=== PATIENT | male | born 1950 | race Caucasian/White ===

== ENCOUNTER 2016-10-16 08:58 | Observation (INO) | payer MEDICARE ==
[~2016-10-16] VITALS: Ht 177.8 cm; Wt 75.1 kg
[~2016-10-16 08:58] MED LIST: ASPI1TAB69 PO; BACL10TA PO; GELFOAM SIZE 100 ONE; GENTAMICIN SULFATE 80 MG/2 ML VIAL ONE; LEVO50TA4 PO; MICROFIBRILLAR COLLAGEN HEMOSTAT 70 X 35 MM BANDAGE ONE; NAPR5CAP; SODIUM CHLOR 0.9% 250 ML INJ 250 ML ONE; THROMBIN (TOPICAL) 5,000 UNIT VIAL ONE; VANCOMYCIN HCL 1000 MG VIAL ONE; ceFAZolin 2 GM PREMIX 50 ML ONE
[2016-10-16] MEDS ORDERED: METOPROLOL TARTRATE 25 MG TAB PO PRN (10:00)
[2016-10-16] MEDS ORDERED: SODIUM CHLORID 0.9% 500 ML IV SCH (10:00)
[2016-10-16] MEDS ORDERED: INSULIN HUMAN REGULAR 1,000 UNITS/10 ML VIAL SQ PRN (10:00)
[2016-10-16] MEDS: LACTATED RINGER'S 1000 ML IV SCH (10:00)
[2016-10-16 10:30] VITALS: BP 159/77; PULSE 64; RESP 16; TEMP 97.7; O2SAT 100
[2016-10-16] MEDS ORDERED: MIDAZOLAM HCL 2 MG/2 ML VIAL ONE (14:03)
[2016-10-16] MEDS ORDERED: ACETAMINOPHEN 1000 MG/100 ML VIAL IV ONE (14:03)
[2016-10-16] MEDS ORDERED: fentaNYL CITRATE 250 MCG/5 ML AMP ONE (14:03)
[2016-10-16] MEDS ORDERED: ARTIFICIAL TEARS OPTH OINT 3.5 APPLIC/3.5 GM TUBO ONE (14:03)
[2016-10-16] MEDS ORDERED: ACETAMINOPHEN/HYDROcodone 325 MG/10 MG TAB PO PRN ×2 (17:30)
[2016-10-16] MEDS ORDERED: SODIUM CHLORIDE 0.9% FLUSH 5 ML FLUSH IVF PRN (17:30)
[2016-10-16] MEDS ORDERED: MORPHINE SULFATE 4 MG/ML INJ IV PUSH PRN ×2 (17:30)
--- NOTE | 2016-10-16 17:36 | RADRPT ---
EXAM DATE/TIME: 10/16/2016 15:06 [facility] COMPARISON: No previous studies available for comparison. INDICATIONS : Cervical fusion and artificial disk. C5-6 MEDICAL HISTORY : Unobtainable. SURGICAL HISTORY : Unobtainable. ENCOUNTER: Initial ACUITY: 1 day PAIN SCORE: Non-responsive. LOCATION: C-spine. FINDINGS: Matrix views reveal normal alignment with placement of an intervertebral disc jean t or disc apparatus at C5-6 which appears appropriately positioned. CONCLUSION: Postsurgical changes C5-C6 Robert Duran MD on October 16, 2016 at 17:34 Board Certified Radiologist. This report was verified electronically.
[2016-10-16] MEDS ORDERED: MORPHINE SULFATE 4 MG/ML INJ ONE (17:39)
[2016-10-16] MEDS ORDERED: ACETAMINOPHEN 325 MG TAB PO PRN (18:00)
[2016-10-16] MEDS ORDERED: BISACODYL 10 MG SUPP PR PRN (18:00)
[2016-10-16] MEDS ORDERED: DEXAMETHASONE SOD PHOS 4 MG/ML VIAL IV SCH (18:00)
[2016-10-16] MEDS ORDERED: MENTHOL LOZENGE SUCK-ON PRN (18:00)
[2016-10-16] MEDS ORDERED: BACLOFEN 10 MG TAB PO PRN (18:00)
[2016-10-16] MEDS: NS + KCL 20 MEQ INJ 1,000 ML IV SCH (18:00)
[2016-10-16] MEDS ORDERED: DO NOT ADM ANY ANTICOAGULANT DRUGS XX PRN (18:00)
[2016-10-16] MEDS ORDERED: ONDANSETRON HCL 4 MG/2 ML VIAL IV PRN (18:00)
[2016-10-16] MEDS ORDERED: ceFAZolin 2 GM PREMIX 50 ML IV SCH (18:00)
[2016-10-16 19:14] VITALS: BP 148/75; PULSE 75; RESP 15; TEMP 98.6; O2SAT 95
[2016-10-16] MEDS: DOCUSATE SODIUM 100 MG CAP PO SCH (21:24)
[2016-10-16] MEDS: DEXAMETHASONE SOD PHOS 4 MG/ML VIAL IV SCH (21:25)
[2016-10-16] MEDS: SODIUM CHLORIDE 0.9% FLUSH 5 ML FLUSH IVF SCH (21:25)
[2016-10-16] MEDS ORDERED: CYCLOBENZAPRINE HCL 10 MG TAB PO PRN (22:00)
[2016-10-16] MEDS: ceFAZolin 2 GM PREMIX 50 ML IV SCH (23:26)
[2016-10-17] VITALS: BP 146/82; PULSE 99; RESP 16; TEMP 97.9; O2SAT 94
[2016-10-17] MEDS: DEXAMETHASONE SOD PHOS 4 MG/ML VIAL IV SCH ×3 (02:40→06:59)
[2016-10-17] MEDS: NS + KCL 20 MEQ INJ 1,000 ML IV SCH ×2 (03:22→06:47)
[2016-10-17 04:00] VITALS: BP 114/68; PULSE 73; RESP 16; TEMP 96.7; O2SAT 95
[2016-10-17] MEDS ORDERED: LEVOTHYROXINE SODIUM 50 MCG TAB PO SCH (06:00)
[2016-10-17] MEDS: ceFAZolin 2 GM PREMIX 50 ML IV SCH (06:11)
[2016-10-17] MEDS: LACTATED RINGER'S 1000 ML IV SCH (06:59)
[2016-10-17] MEDS: DOCUSATE SODIUM 100 MG CAP PO SCH (07:23)
[2016-10-17] MEDS: SODIUM CHLORIDE 0.9% FLUSH 5 ML FLUSH IVF SCH (07:23)
[2016-10-17 08:02] VITALS: BP 130/68; PULSE 70; RESP 18; TEMP 96.7; O2SAT 97
[2016-10-17] MEDS ORDERED: PANTOPRAZOLE SOD 40 MG DELAYED RELEASE TAB PO SCH (09:00)
[2016-10-17] MEDS ORDERED: HYDR-3533 PO (09:28)
--- NOTE | 2016-10-17 10:15 | HHI.DCPOC ---
Discharge Care Plan Diagnosis: (1) Status post cervical arthrodesis Goals to Promote Your Health * To prevent worsening of your condition and complications * To maintain your health at the optimal level Directions to Meet Your Goals Take your medications as prescribed Follow your dietary instruction Follow activity as directed Keep your appointments as scheduled Take your immunizations and boosters as scheduled If your symptoms worsen call your PCP, if no PCP go to Urgent Care Center or Emergency Room Smoking is Dangerous to Your Health. Avoid second hand smoke Call the 24-hour hour crisis hotline for domestic abuse at [facility] Oct 17, 2016 10:15
[2016-10-17] MEDS ORDERED: LACTATED RINGER'S 1000 ML INJ 2,000 ML IV ONE (12:00)
[2016-10-17] MEDS ORDERED: ONDANSETRON HCL 4 MG/2 ML VIAL IV PUSH ONE (12:00)
[2016-10-17] MEDS ORDERED: PROPOFOL 200 MG/20 ML AMP IV ONE (12:00)
[2016-10-17] MEDS ORDERED: NEOSTIGMINE 3 MG/3 ML SYR IV ONE (12:00)
--- NOTE | 2016-10-18 17:01 | PD.OP ---
Operative Report Date of Surgery: Oct 16, 2016 Preoperative Diagnosis: C5 6 disc herniation Postoperative Diagnosis: C5 6 disc herniation Procedure: C5-6 anterior cervical discectomy and arthroplasty using Mobi C Anesthesia: general Surgeon: Mark Cardoza Food Vendor(s): Flakita Ruvalcaba Operation and Findings: INDICATIONS FOR THE PROCEDURE Mr Lincoln is a 66 year-old male who presented with intractable neck pain and clinical evidence of C6 cervical radiculopathy. He was found to have a large disc herniation at C5-6, causing significant mass effect on the nerve root. He failed multiple modalities of nonsurgical treatment and his symptoms were affecting his quality of life. An anterior cervical discectomy and arthroplasty were indicated. The [id number] details of the surgical procedure, indications, alternatives, risks and potential complications were fully discussed with the patient. The patient fully understood. All her questions were answered. No guarantees were given. he voiced requesting the procedure and signed informed consents. She was offered the alternative of delaying the procedure and continuing with nonsurgical management. DETAILS OF THE SURGICAL PROCEDURE SURGICAL APPROACH A skin incision was made along the middle cervical crease with a #10 blade. The dissection was carried out through the platysma exposing the sternocleidomastoid muscle. The cervical spine was approached following the fascial layers of the neck, just medial to the anterior border of the sternocleidomastoid and carotid sheath by a combination of sharp and dull dissection. The omohyoid muscle was identified and carefully dissected laterally and the deep cervical fascia was carefully opened. The longus colli muscles were retracted to each side of the midline. A marker was placed at the C5-6 disc space and a cross-table lateral x-ray performed with a C-arm. An AP xray was then obtained as well, and the midline of the disk space was defined. SURGICAL DECOMPRESSION In order to decompress the anterior surface of the spinal cord it was necessary to perform a microsurgical resection of the disk. At this point in the procedure the operating microscope was draped in the usual sterile fashion and brought to the field. The rest of the surgical procedure was performed using microdissection technique with the exception of the closure. Under the operative microscopic a self-retaining retractor was placed underneath the longus colli muscle. The annulus at C5-6 was incised with a #15 blade and microdiscectomy was then carefully carried out using angled curets and pituitary forceps. The patient had a disk herniation in association with an osteophitic spurr, which was producing mass affect on the exiting nerve root. This was carefully dissected with a nerve hock and resected with a think foot plate 2 mm Kerrison under high magnification. The posterior longitudinal ligament was then elevated with an angled curet and incised with a 15 bladed knife. A careful resection of the posterior longitudinal ligament was carried out using a thin footplate 2 mm Kerrison. Extruded disk fragments causing mechanical compression were carefully dissected. The decompression was then carried out laterally, and a bilateral foraminotomy was performed with a 2 mm thin foot Kerrison. The epidural space was the systematically assessed with a nerve hook in search for disk fragments of scar tissue. An excellent decompression was achieved in both, the dural sac and bilateral exiting nerve roots. The incision was then irrigated with a large amount of antibiotic solution INTERBODY ARTHROPLASTY In order to avoid collapse of the disk space which would result in bilateral foraminal stenosis, and in order to maintain disk space height and function minimally development of adjacent level degeneration, it was necessary to place an interbody device. At this point of the procedure, gentle distraction was applied. The size of the interbody device was then assessed using a trial, and a cross table xray was done for confirmation of appropriate size and position of the device. Then the disk space was irrigated with antibiotic solution, and a 15mm by 6mm Mobi C artificial disk was carefully impacted into the disc space C5-6. An excellent position of the device was achieved. This was confirmed anatomically by feeling the space posterior to the implant and distance to the anterior surface of the dural sac. Radiological confirmation of the position was performed with a cross table AP and lateral X-ray views, performed with the C-arm. COMPLETION OF THE SURGICAL PROCEDURE Once that each interbody device was in an appropriate position, the distraction was discontinued. The position of the device as well as alignment of the spine were assessed anatomically by direct visualization, and radiologically by performing an AP and lateral X-ray of the cervical spine with the C-arm. The position of the implant was excellent. The incision was irrigated with several liters of antibiotic solution. Hemostasis was achieved with a bipolar. A 7 mm Sunny-Rock drain was left in the prevertebral space and externalized through a separate stab incision. The incision was then closed in layers. 3-0 Vicryl with interrupted sutures was used to close the platysma and subcutaneous tissue. The skin was closed with 4- 0 running subcuticular Vicryl and Dermabond was applied to the skin. The drain was secured with a 3-0 nylon. At the end of the procedure the sponge, needle and instrument counts were all correct. The estimated blood loss was less than 50-60 cc. No blood transfusion was given. No intraoperative complications occurred. The patient received prophylactic antibiotics. The patient was then extubated and transferred to the recovery room in stable condition. Mark Cardoza MD Oct 18, 2016 17:01
--- NOTE | 2016-10-19 13:16 | HHI.DS ---
Discharge Summary Admission Date Oct 16, 2016 at 17:39 Discharge Date: Oct 17, 2016 Admitting Diagnosis s/p cervical discectomy with arthroplasty (1) Status post cervical arthrodesis ICD Code: Z98.1 Brief History Mr Lincoln is a 66 year-old male who presented with intractable neck pain and clinical evidence of C6 cervical radiculopathy. He was found to have a large disc herniation at C5-6, causing significant mass effect on the nerve root. He failed multiple modalities of nonsurgical treatment and his symptoms were affecting his quality of life. An anterior cervical discectomy and arthroplasty were indicated. Imaging Last Impressions Cervical Spine X-Ray 10/16/16 0000 Signed Impressions: Service Date/Time: Sunday, October 16, 2016 15:06 - CONCLUSION: Postsurgical changes C5-C6 Robert Duran MD PE at Discharge Mr. Lincoln is alert, in no apparent distress. Speech is fluent. Mentation intact. Incision is clean and dry, with dressing in place. Cranial nerve examination: pupils to be equal, round and reactive to light. Facial motor are normal and symmetrical. Neck is immobilized by a Marshall J collar. Motor: moves major muscle groups of upper and lower extremities well Respiratory; clear, nonlabored Hospital Course Mr. Lincoln is a 66 year old male who underwent a C5-6 anterior cervical discectomy and arthroplasty using Mobi C for cervical HNP on Oct 16, 2016. His surgery went well without complications. He will be discharged home in stable conditions. Activity restrictions, wound care, and signs and symptoms to watch for were fully discussed with the patient. Pt Condition on Discharge: Stable Discharge Disposition: Discharge Home Discharge Instructions DIET: Follow Instructions for: Heart Healthy Diet, Soft Diet ADDITIONAL Diet Instructions: advance as tolerated ACTIVITIES You can perform: Weight Bearing As Asa ADDITIONAL Activity Instructio: Avoid strenuous activities, heavy lifting, overhead activities, repetitive bending, twisting, pushing, pulling or any activities which might result in stress over the spine. Avoid situtation that will put at risk for falls. Use assistive device as needed for walking. Wear cervical collar at all times, may remove only with meals. New Medications: Hydrocodone-Acetaminophen (Lortab) 5-325 Mg Tab 1-2 TAB PO Q12HR PRN PAIN #31 Ref 0 TAB Continued Medications: Aspirin (Aspirin) 81 Mg Tabdr 81 MG PO DAILY TAB Baclofen (Baclofen) 10 Mg Tab 10 MG PO TID PRN MUSCLE SPASM Ref 0 TAB Levothyroxine (Levothyroxine) 50 Mcg Tab 75 MCG PO DAILY Thyroid #30 Ref 0 TAB Naproxen Sodium (Naproxen Sodium) 220 Mg Cap 440 BID [facility] Oct 19, 2016 13:16
[2017-01-24] MEDS ORDERED: ASPI81TA81 (09:05)
[2017-01-24] MEDS ORDERED: LEVO75TA3 (09:05)
[2017-01-24] MEDS ORDERED: ACYC400T (09:05)
[2017-01-30] MEDS ORDERED: MEDI220T PO (09:39)
== END 2016-10-17 11:31 | disposition home or self-care (01) ==
LOC: HOR 08:58 → EDSTATUS 11:00 → HSDI 17:39 → N06B 18:25
PROVIDERS: ADMIT Neurological Surgery; ATTEND Neurological Surgery
DX: M50.122 Cervical disc disorder at C5-C6 level with radiculopathy (principal)
CPT/HCPCS: 00600; 22856; 72040; 76000; C1713; G0378; J0131; J0690; J1100; J1580; J2250; J2270; J2405; J2710; J3010; J3370; J3480; J7050; J7120; L0150; L0172

== ENCOUNTER → 2017-07-01 | Day surgery (SDC) | payer MEDICARE ==
[~2017-07-01] VITALS: Ht 177.8 cm; Wt 75.4 kg
[~2017-07-01] MED LIST changes: +ACETAMINOPHEN 325 MG TAB PO PRN; +ACETAMINOPHEN/HYDROcodone 325 MG/10 MG TAB PO PRN; +ACYC400T PO; +ACYCLOVIR 200 MG CAP PO SCH; -ASPI1TAB69 PO; +ASPI81TA81 PO; +BACLOFEN 10 MG TAB PO PRN; +BUPIVACAINE HCL PF 0.5% 30 ML VIAL ONE; +CHLORHEXIDINE GLUCONATE 2 % 1 PACK (2 CLOTHS) TOPICAL PRN; +DEXAMETHASONE SOD PHOS 4 MG/ML VIAL IV ONE; +DO NOT ADM ANY ANTICOAGULANT DRUGS PRN; +DOCUSATE SODIUM 100 MG CAP PO SCH; +GLYCOPYRROLATE 1 MG/5 ML SYRINGE IV PUSH ONE; +HYDR-3535 PO; +INSULIN HUMAN REGULAR 1,000 UNITS/10 ML VIAL SQ PRN; +LACTATED RINGER'S 1000 ML INJ 1,000 ML IV ONE; +LACTATED RINGER'S 1000 ML IV PRN; -LEVO50TA4 PO; +LEVO75TA3 PO; +LEVOTHYROXINE SODIUM 75 MCG TAB PO SCH; +LIDOCAINE HCL 1% PF 5 ML AMPULE OTHER ONE; +MEDI220T PO; +METOPROLOL TARTRATE 25 MG TAB PO PRN; -MICROFIBRILLAR COLLAGEN HEMOSTAT 70 X 35 MM BANDAGE ONE; +MIDAZOLAM HCL 2 MG/2 ML VIAL IV ONE; +MORPHINE SULFATE 4 MG/ML INJ IV PUSH PRN; -NAPR5CAP; +NEOSTIGMINE 3 MG/3 ML SYR IV ONE; +NON-FORMULARY DRUG (Naproxen Sodium 220 MG) PO PRN; +NS + KCL 20 MEQ INJ 1,000 ML IV SCH; +ONDANSETRON HCL 4 MG/2 ML VIAL IV PUSH ONE; +PANTOPRAZOLE SOD 40 MG DELAYED RELEASE TAB PO SCH; +PHENYLEPH/NS 1000 MCG/10 ML SYR IV ONE; +POVIDONE IODINE 5% (ANTISEPSIS KIT) 4 APPLICATIONS EACH NARE PRN; +PROPOFOL 200 MG/20 ML AMP IV ONE; +ROCURONIUM INJ 50 MG/5 ML SYRINGE IV PUSH ONE; -SODIUM CHLOR 0.9% 250 ML INJ 250 ML ONE; +SODIUM CHLORID 0.9% 500 ML IV PRN; +SODIUM CHLORIDE 0.9% 20 ML VIAL IV ONE; +SODIUM CHLORIDE 0.9% FLUSH 5 ML FLUSH IVF PRN; +SODIUM CHLORIDE 0.9% FLUSH 5 ML FLUSH IVF SCH; +VANCOMYCIN HCL 1000 MG ON-CALL/NS 250 ML IV SCH; +VECURONIUM BROMIDE 20 MG VIAL IV ONE; +ceFAZolin 2 GM PREMIX 50 ML IV SCH; +ceFAZolin INJ 1,000 MG VIAL IV ONE; +ePHEDrine/NS 25 MG/5 ML SYR IV ONE; +methylPREDNISolone ACETATE 40 MG/ML VIAL ONE
--- NOTE | 2017-07-01 11:51 | RADRPT ---
EXAM DATE/TIME: 07/01/2017 09:31 [facility] COMPARISON: No previous studies available for comparison. INDICATIONS : L3-L4, L4-L5 sarkis-laminectomy. Level localization. MEDICAL HISTORY : None. SURGICAL HISTORY : Cervical artifical disk. ENCOUNTER: Initial ACUITY: 1 day PAIN SCORE: Non-responsive. LOCATION: Lumbar spine. FINDINGS: A single lateral view of the lumbar spine was performed. There is a localization device placed poste riorly at the third from the bottom disc space.. CONCLUSION: Localization device posteriorly at the third from the bottom to space level. Chase Butler MD on July 01, 2017 at 11:49 Board Certified Radiologist. This report was verified electronically.
--- NOTE | 2017-07-01 11:52 | RADRPT ---
EXAM DATE/TIME: 07/01/2017 09:31 [facility] COMPARISON: No previous studies available for comparison. INDICATIONS : L3-L4, L4-L5 sarkis-laminectomy. Level localization. MEDICAL HISTORY : None. SURGICAL HISTORY : Cervical artifical disk. ENCOUNTER: Initial ACUITY: 1 day PAIN SCORE: Non-responsive. LOCATION: Lumbar spine. FINDINGS: A single lateral view of the lumbar spine was performed. Localization device placed posteriorly at t he second from the bottom lumbar vertebral body.. CONCLUSION: Second from the bottom lumbar vertebral body. Chase Butler MD on July 01, 2017 at 11:50 Board Certified Radiologist. This report was verified electronically.
--- NOTE | 2017-07-01 12:49 | PD.OP ---
Operative Report Date of Surgery: Jul 01, 2017 Preoperative Diagnosis: Lumbar spinal stenosis Postoperative Diagnosis: Lumbar spinal stenosis Procedure: L3-4 left laminectomy foraminotomy, mesiofacetectomy with microsurgical resection of the disk L4-5 left laminectomy foraminotomy, mesiofacetectomy with microsurgical resection of the disk Anesthesia: general Surgeon: Mark Cardoza Car Sales Associate(s): Flakita Ruvalcaba Operation and Findings: INDICATIONS FOR THE SURGICAL PROCEDURE Mr Lincoln is a 66 year-old male who presented with intractable back pain and ute evidence of left L3 and right [id number] extremity radiculopathy. He was found to have focal spinal stenosis at L3-4 and L4-5. he failed maximum nonsurgical management including multiple modalities of conservative treatment as well as pain management interventions by an interventional pain specialist. A surgical decompression was indicated as a last resort. The csbs-di-gdob details of the procedure, indications, alternatives, risks and potential complications were fully discussed with the patient. The patient fully understood. All the questions were answered. No guarantees were given. The patient voiced requesting the procedure and provided informed consents. The patient was offered the alternative of delaying the procedure and continuing with nonsurgical management. DETAILS OF THE SURGICAL PROCEDURE After the induction of general anesthesia, endotracheal intubation was performed. A [place] catheter, bilateral BASSAM hose and sequential compression devices were placed and kept throughout the procedure. The patient was positioned prone on a Sunny table over a Terry frame. All pressure points were carefully padded with eggcrate mattress. The eyes were tapped shut after ointment was applied by the anesthesiologist to prevent corneal abrasion. A Chuckie hugger was placed over the expossed lower body to maintain control of the core body temperature. The lower lumbar region was prepped and draped in the usual sterile fashion. A spinal needle was placed on the paraspinal muscle and a cross-table lateral x-ray performed with a C-arm. The skin incision was made over the spinous process of L3 and L5 along the midline. Small subcutaneous bleeders were controlled with a bipolar. The subcutaneous tissue and thoracolumbar fascia was opened with the Bovie and the spinous process of L3, L4 and L5 were exposed. Then, using a Perez elevator and a Bovie a subperiosteal dissection was performed over the spinous process lamina and facet at L3-4 on the left side, and L4 and L5 on the right side. A microdiscectomy self-retaining retractor was placed and an instrument was placed underneath the lamina of L4, and another cross-table lateral x-ray performed for radiological confirmation of the level. At this point in the procedure the operating microscope was draped in the usual sterile fashion and brought to the field. The rest of the surgical procedure was performed using microsurgical dissection technique with exception of the closure. Once the level was confirmed, a TPS drill brought to the field and a hemilaminectomy was performed at L3-L4 on the left side, and L4-L5 on the right side in standard fashion using the AM-8 drill bit, exposing the ligamentum flavum. The superior free border of the ligamentum flavum was from the dura with a ligament dissector and the ligamentum flavum was carefully removed with a 3 mm thin footplate Kerrison. The ligament Flavum and facets were significantly hypertrophic resulting on mass effect on the dural sac. Then, the medial aspect of the facet was drilled and undermined and the exiting left L4, and right L5 nerve root were identified and followed towards the foramen. A foraminotomy was performed with a 3 mm Kerrison at both levels. Then, the TPS drill was used to undermine the base of the spinous process, in order to carry out the decompression across the midline to the contralateral side. The ligamentum flavum across the midline was dissected from the dura with a ligament dissector and carefully removed with a 3 mm thin footplate Kerrison. An appropriate decompression of the dural sac and nerve root was achieved. Epidural veins located laterally to the dural sac were carefully coagulated with a bipolar and incised with microscissors. Gentle medial retraction of the dural sac allowed inspection of the disc space. The patient had a broad-based disc protusion which combined with the hypertrophic facets and ligamentun flavum was producing significant stenosis with mass effect on the dural sac and nerve root. Microdiscectomy was then deemed necessary at L3-4 and at L4-5. The annulus fibrosus was thoroughly coagulated with the bipolar and incised with a #10 blade. Then, a microdiscectomy was carried out in the standard fashion using straight and up- biting pituitary forceps. A reverse angle curet was used to push the herniated disc fragments into the disc space so they could be removed with pituitary forceps. Special attention was placed on the middle nerve root and axilla of the nerve root where disc fragments were found, which were carefully dissected and pushed into the disc space and removed with the Kerrison. An excellent decompression was achieved at L3-4, and at L4-5. The disc spaces were then irrigated with antibiotic solution. The incision was then thoroughly irrigated with antibiotic solution and hemostasis secured with the bipolar. A Valsalva maneuver failed to show any cerebrospinal fluid leak or bleeding. The incision was irrigated and closed in layers. 0 Vicryl with interrupted sutures was used to close the thoracolumbar fascia and superficial fascia. The subcutaneous tissue was closed with 3-0 Vicryl. The skin was closed with 4-0 running subcuticular Vicryl. Dermabond was applied to the skin. At the end of the procedure, the sponge, needle and instrument counts were all correct. Estimated blood loss was less than 80-100 cc. No blood transfusion was given. No intraoperative complications occurred. The patient received prophylactic antibiotics. The patient was then extubated and transferred to the recovery room in stable condition. Mark Cardoza MD Jul 01, 2017 12:49
[2017-07-01 15:48] VITALS: BP 120/71; PULSE 82; RESP 16; TEMP 98.1; O2SAT 95
== END | disposition home or self-care (01) ==
LOC: HSDC 06:41 → UNDOADMOB 11:53 → HSDI 11:53
PROVIDERS: ATTEND Neurological Surgery
DX: M48.061 Spinal stenosis, lumbar region without neurogenic claudication (principal); M47.816 Spondylosis without myelopathy or radiculopathy, lumbar region
CPT/HCPCS: 00630; 63047; 63048; 72020; 76000; J0690; J1030; J1100; J1580; J2250; J2370; J2405; J2710; J3010; J3370; J3480; J7120; L0627

== ENCOUNTER 2018-03-10 06:44 | Inpatient (IN) ==
[2018-03-10] MEDS ORDERED: Propofol Inj 500 MG/50 ML Vial ONE (07:13)
[2018-03-10] MEDS ORDERED: Metoprolol Tartrate 25 MG Tablet PO SCH ×2 (07:15→07:30)
[2018-03-10] MEDS ORDERED: Chlorhexidine Gluconate 2% 1 Pack (2 Cloths) TOPICAL SCH ×2 (07:15→07:30)
[2018-03-10] MEDS ORDERED: Thrombin Topical Soln 5,000 UNIT Vial TOPICAL ONE (07:25)
[2018-03-10] MEDS ORDERED: Bupivacaine/Epinephrine PF Inj 0.5% 10 ML Vial ONE (07:25)
[2018-03-10] MEDS ORDERED: ceFAZolin 2 GM Premix Inj 2 GM/50 ML PIGGYBACK IV.SIG ONE ×2 (07:25→12:54)
[2018-03-10] MEDS ORDERED: Ketamine Inj 50 MG/5 ML Syringe IV.PUSH ONE (07:34)
[2018-03-10] MEDS ORDERED: Sodium Chlor 0.9% Inj 500 ML IV.SIG SCH ×2 (08:00)
[2018-03-10] MEDS ORDERED: Vancomycin Inj 1 GM/200 ML PIGGYBACK IV.SIG SCH (08:00)
[2018-03-10 08:08] LABS: Bilirubin,Urine Negative (Negative); Clarity,Urine Clear (Clear); Color,Urine Yellow (Yellw/Straw); Glucose,Urine (UA) Negative (Negative); Hyaline Casts,Urine 1 /lpf (0-3); Leukocyte Esterase,Urine Negative (Negative); Nitrite,Urine Negative (Negative); Specific Gravity,Urine 1.023 (1.002-1.035)
[2018-03-10] MEDS ORDERED: Bisacodyl 10 MG Supp RECTAL PRN (09:57)
[2018-03-10] MEDS ORDERED: Zolpidem Tartrate 5 MG Tablet PO PRN (09:57)
[2018-03-10] MEDS ORDERED: Naloxone Inj 0.4 MG/ML Vial IV.PUSH PRN ×3 (10:00→17:28)
[2018-03-10] MEDS ORDERED: Heparin - SQ 10,000 UNITS/ML Vial SQ ONE (10:17)
[2018-03-10] MEDS ORDERED: Glycopyrrolate Inj 1 MG/5 ML Syringe IV.PUSH ONE (12:00)
[2018-03-10] MEDS ORDERED: Sodium Chlor 0.9% Inj 500 ML IV.SIG ONE (12:00)
[2018-03-10] MEDS ORDERED: Lidocaine PF 1% Inj 5 ML Syringe INFILTRATN ONE (12:00)
[2018-03-10] MEDS ORDERED: Phenylephrine/NS 1000 MCG/10ML Syringe IV.PUSH ONE (12:00)
[2018-03-10 14:11] LABS: ABG Base Excess -3.7 mmol/L (-2-2); ABG PCO2 34 mmHg (38-42); ABG PO2 304 mmHG (61-120)
--- NOTE | 2018-03-10 16:13 | P.OP ---
Date of procedure: 03/10/18 Procedure: L2-3, L3-4, L4-L5 redo lumbar laminectomy, interbody arthrodhesis using PEEK cage and autologous bone graft, L2-3, L3-4, L4-L5 instrumental fixation using transpedicular screws and rods, L2-3, L3-4, L4-L5 posterolateral fusion using autologous bone graft and demineralized bone matrix. Microsurgical dissection Anesthesia: GETA Surgeon: Mark Cardzoa MD Elementary Science Teacher: Flakita Ruvalcaba Pathology: none sent Operation and Findings: INDICATIONS FOR THE SURGICAL PROCEDURE Mr Hutchinson is a 67 year-old male with history of prior lamiunectomies and discectomies at L3-4 and L4-5, who presented with intractable mechanical back pain and ute evidence of L3, L4 and L5 lower extremity radiculopathy. He has failed maximum nonsurgical management including multiple modalities of conservative treatment as well as pain management interventions by an interventional pain specialist. A surgical decompression and arthrodhesis were indicated as a last resort. Initially my plan was to address L3-4 and L4-5, however Mr Lincoln has developed severe pain higher on his spine and a symptomatic L3 radiculopathy. he requested to include L2-3. The [id number] details of the procedure, indications, alternatives, risks and potential complications were fully discussed with the patient. The patient fully understood. All the questions were answered. No guarantees were given. He voiced requesting the procedure and provided informed consents. He was offered the alternative of delaying the procedure and continuing with nonsurgical management. DETAILS OF THE SURGICAL PROCEDURE Prior to the procedure, the procedure, risks, and potential complications revisited with the patient. Placement of electrodes for intraoperative neurophysiological monitoring was completed. The patient was taken to the operative room, and following induction of general anesthesia, endotracheal intubation was performed. A Washington catheter, bilateral BASSAM hose and sequential compression devices were placed and kept throughout the procedure. The patient was positioned prone, over a Sunny table over a bolsters. All pressure in the preoperative surgical holding room points were carefully padded with eggcrate and gel mattress. The eyes were tapped shut after ointment was applied by the anesthesiologist to prevent corneal abrasion. A Chuckie hugger was placed over the exposed lower body to maintain control of the core body temperature. The electrophysiological team placed the needles and electrodes in their proper location and baseline SSEP's and motor evoked potentials were registered. The entrance to each pedicles was marked using a C arm. The lumbar region was prepped and draped in the usual sterile fashion. The surgical procedure was performed in several steps as follow: SURGICAL APPROACH Once the patient was positioned, a localizing cross-table lateral and AP x-ray was performed with a C-arm. Two paramedian small incisions were outlined on the skin approximately 3cm from the midline. The skin incisions were made with a # 10 blade. Small bleeders were controlled with the cautery. The dissection was then carried out into deeper planes and through the thoracolumbar fascia with a Bovie. The intermuscular septum was identified and the muscles were blunted dissected along the septum. The facets and transverse process of L2-3, L3-4, L4, 5 were exposed and the proper anatomical landmarks were identidied. A localizing lateralizing cross-table x-ray was performed with an instrument underneath a lamina of the lumbar spine. INSTRUMENTAL FIXATION At this point in the procedure, placement of bilateral transpedicular screws was necessary for stabilization of the spine. Initially, the entry point for the screw was selected anatomically at the junction of the facet, with the transverse process, and the pars interarticularis at L2-3, L3-4, L4,5. This was started with a Giamshetti needle, followed by the use of K wire. A tap was used to create the threads for the screws. Finally bilateral transpedicular screws were carefully placed bilaterally at L2, L3, L4, and L5 under fluoroscopic visualization. An appropriate purchase was achieved with all screws. The position of each screw was assessed anatomically with an AP, lateral , oblique Xrays. An intraoperative scan view of the spine was then performed using the iso-centric c-arm. Each screw was then assessed electrophysiologically stimulating each screw with a nerve stimulator. SURGICAL DECOMPRESSION There was significant mass effect with compression of the neural structures. In order to relieve neural compression, it was necessary to perform a decompressive laminectomy, with decompression of the spinal canal and bilateral lateral recesses. Note that the scope of such decompression was significantly more extensive than the minimal exposure necessary to perform an interbody fusion, as there was extreme facet arthropathy with severe degeneration of the disk spaces and stenosis cause by the hyperthrophic joint facets. At this point of the procedure the operative microscope was draped in the usual sterile fashion and brought to the field. The rest of the surgical procedure was performed using microdissection technique with the exception of the closure. Under the operating microscope, the margins of the prior decompression were identified and a decompressive laminectomy was carried out from a right side approach at L2-3, L3-4, L4,5 as follow: The laminae, base of the spinous processes and facets were carefully drilled exposing the ligamentum flavum. The facets were abnormal with severe spondylolisthesis and gross mechanical instability. A large disk protusion was compressing the neural structures and exiting nerve roots. A near complete facetectomy was necessary resulting in further mechanical instability. The ligamentum flavum appeared hypertrophic, resulting on mass effect on the dorsal surface of the neural structures. The superior free border of the ligamentum flavum was elevated with a ligament dissector and the ligamentum flavum was removed with a 3 and 4 mm Kerrison forceps. The ligament was very adherent to the dural sac and during the dissection, ans extreme care was taken during the dissection. The exiting nerve roots were identified, and a wide foraminotomy was performed with a Kerrison in their trajectory towards the neural foramen. Epidural veins located laterally to the dural sac were coagulated with the bipolar cautery, and then incised using microscissors. Gentle medial retraction of the dural sac allowed me to expose the disc space for the discectomy. Upon completion of the discectomy, an excellent decompression of the neural structures was achieved. INTERBODY ARTHRODHESIS In order to correct the narrowing of the disk space and maintain distraction of the space, and to achieve a solid interbody fusion, it was necessary the insertion of an interbody device into the disk space. Otherwise, the disk space would collapse, compromising the result of the surgical procedure. At this point of the procedure, the annulus fibrosus of the disk was carefully coagulated with a bipolar cautery and incised using an 11 bladed knife. Then, a microdiscectomy was carried out in a standard fashion using a combination of straight and up-biting pituitary forceps. A reverse angle curette was applied underneath the posterior longitudinal ligament, and used to push the disk fragments into the disk space, so they can be safely removed with a pituitary forceps. Once the discectomy was completed, it was necessary to decorticate the endplates, in order to eliminate the cartilaginous endplate and to expose healthy bone appropriate to perform the interbody fusion. The endplates at L2-3 , L3-4, L4,5 were then thoroughly decorticated using increasing size bone boyd and ring curets, eliminating the cartilaginous fragments from both, the superior and inferior endplates. A disk space distractor was applied to the pedicle screws and gentle distraction was applied. This maneuver was assisted by the use of a disk distractor. Increased motility was noted at the disk, which was consistent with instability due to facet arthropathy. Once a thorough preparation of the disk space was achieved, the disk space was irrigated with antibiotic solution, and the interbody fusion was performed by carefully impacting PPEK cages filled with autologous iliac crest bone graft. The use of several shoe impactors with different angulation, allowed me for an excellent, proper position of the interbody cages L2-L3, L3-4 and L4,5. A solid position of the cage with good purchase was achieved. The position of the cages were assessed anatomically with a probe and radiologically with the C-arm. POSTEROLATERAL FUSION The posterolateral fusion is a critical component to the procedure, to prevent future fatigue and failure of the instrumental fixation. Initially, the transverse processes of the vertebral bodies, lateral surface of the facets and the lateral gutters of the spine were carefully cleaned, eliminating all soft tissue and muscle attachments. The area was then irrigated with a large amount of antibiotic solution. Subsequently, the transverse processes, lateral surface of the facets, and lateral gutters of the spine were thoroughly decorticated using the TPS drill with a 5mm cutting alex, exposing cancellous bone, in preparation for the posterolateral fusion. The incision was again irrigated with antibiotic solution. Then, the posterolateral fusion was then performed by carefully packing the lateral gutters of the spine at L3-4, L4,5 with autologous iliac crest bone combined with demineralized bone matrix. COMPLETION OF THE INSTRUMENTATION AND CLOSURE The rods were brought to the field, applied to all the screws, and the screw caps were sequentially applied. Compression was performed between the pedicle screws, and final tightening of the screws was completed using a torque wrench. The incision was again thoroughly irrigated with several liters of antibiotic solution, and hemostasis secured with the bipolar cautery. A Valsalva Maneuver performed by the anesthesiologist failed to show any evidence of cerebrospinal fluid leak or bleeding. A 7 mm Sunny-Rock drain was left in the epidural space and externalized through a separate stab incision. The incision was then closed in planes. 0 Vicryl was used in an interrupted fashion to close the thoracolumbar fascia and the superficial fascia. The subcutaneous tissue was then approximated using 3-0 Vicryl in an interrupted fashion. Special care was taken to avoid space. The skin was then closed with 4-0 Vicryl in a running, subcuticular fashion. Dermabond Prineo was applied to the skin. Each plane of closure was irrigated with antibiotic solution. At the end of the procedure the sponge, needle and instrument counts were all correct. Estimated blood loss was 1000 cc. No blood transfusion was given. The entire procedure was performed using continuous electrophysiological monitoring of the somatosensorial evoked potentials and EMG. The patient received prophylactic antibiotics. The patient was then extubated and transferred to the recovery room in stable condition.
[2018-03-10] MEDS ORDERED: fentaNYL Citrate Inj 100 MCG/2 ML Ampul ONE (16:16)
[2018-03-10] MEDS ORDERED: Morphine Inj 4 MG/ML Vial ONE (16:17)
[2018-03-10 16:37] LABS: Hematocrit 32.2 % (39.0-51.0); Hemoglobin 10.9 gm/dL (13.0-17.0); Mean Corpuscular Hemoglobin 31.6 pg (27.0-34.0); Mean Corpuscular Volume 93.1 fL (80.0-100.0); Mean Platelet Volume 7.6 fL (7.0-11.0); Platelet Count 210 th/mm3 (150-450); Red Blood Count 3.46 mil/mm3 (4.50-5.90); Red Cell Distribution Width 13.2 % (11.6-17.2); White Blood Count 15.2 th/mm3 (4.0-11.0)
[2018-03-10] MEDS ORDERED: HYDROmorphone PCA Inj 6 MG/30 ML PCA.VIAL PCA ONE (16:55)
--- NOTE | 2018-03-10 16:57 | XR ---
EXAM DATE: 03/10/2018 4:24 PM EDT AGE/SEX: 67 years / Male INDICATIONS: Fusion L2 to L5 with screws and rods placement. CLINICAL DATA: This is the patient's initial encounter. Patient reports that signs and symptoms have been present for 1 day and indicates a pain score of Nonresponsive. MEDICAL/SURGICAL HISTORY: Non-responsive. Non-responsive. COMPARISON: No prior exams available for comparison. FINDINGS: Transpedicular screws traverse the bodies ofL2, L3, L4, and L5 with posterior stabilization hardware in place in addition to anterior fusion at these levels. CONCLUSION: Intact postsurgical changes. Electronically signed by: Reji Alex MD 03/10/2018 4:55 PM EDT
[2018-03-10] MEDS: Sod Chloride 0.9% Inj 1,000 ML IV.SIG SCH (17:30)
[2018-03-10] MEDS: HYDROmorphone PCA Inj 6 MG/30 ML PCA.VIAL PCA PRN (17:30)
[2018-03-10 20:52] LABS: Carbon Dioxide 18.7 meq/L (21.0-32.0); Potassium 4.1 meq/L (3.5-5.1)
[2018-03-10] MEDS: Senna/Docusate Sodium 8.6/50 MG Tablet PO SCH (21:41)
[2018-03-10] MEDS: Acyclovir 200 MG Capsule PO SCH (21:41)
[2018-03-10] MEDS: ceFAZolin 2 GM Premix Inj 2 GM/50 ML PIGGYBACK IV.SIG SCH ×2 (22:31→22:32)
[2018-03-11] MEDS: Levothyroxine 88 MCG Tablet PO SCH (05:20)
[2018-03-11 05:29] LABS: White Blood Count 9.1 th/mm3 (4.0-11.0)
[2018-03-11 05:30] LABS: Baso % (Auto) 0.2 % (0.0-2.0); Hematocrit 29.8 % (39.0-51.0); Hemoglobin 10.2 gm/dL (13.0-17.0); Lymph # (Auto) 1.1 th/mm3 (1.0-4.8); Lymph % (Auto) 11.6 % (9.0-44.0); Mean Corpuscular HGB Conc 34.4 % (32.0-36.0); Mean Corpuscular Hemoglobin 31.5 pg (27.0-34.0); Mean Corpuscular Volume 91.8 fL (80.0-100.0); Mean Platelet Volume 7.6 fL (7.0-11.0); Mono # (Auto) 0.8 th/mm3 (0.0-0.9); Mono % (Auto) 8.7 % (0.0-8.0); Neut # (Auto) 7.2 th/mm3 (1.8-7.7); Neut % (Auto) 79.5 % (16.0-70.0); Platelet Count 177 th/mm3 (150-450); Red Blood Count 3.24 mil/mm3 (4.50-5.90); Red Cell Distribution Width 13.1 % (11.6-17.2)
[2018-03-11 05:32] LABS: Calcium 7.9 mg/dL (8.5-10.1); Potassium 3.8 meq/L (3.5-5.1)
[2018-03-11] MEDS: ceFAZolin 2 GM Premix Inj 2 GM/50 ML PIGGYBACK IV.SIG SCH (07:20)
[2018-03-11] MEDS: Sod Chloride 0.9% Inj 1,000 ML IV.SIG SCH ×3 (07:39→20:47)
[2018-03-11] MEDS: Sod Chloride 0.9% Inj 1,000 ML IV.CONT SCH ×2 (07:40→20:47)
[2018-03-11] MEDS: Senna/Docusate Sodium 8.6/50 MG Tablet PO SCH ×2 (08:58→20:49)
[2018-03-11] MEDS: Acyclovir 200 MG Capsule PO SCH ×2 (08:58→20:49)
[2018-03-11] MEDS ORDERED: diazePAM 2 MG Tablet PO PRN (09:39)
--- NOTE | 2018-03-11 13:00 | P.PNNS ---
Subjective Interval history: 03/11: painful surgery pain, c/o mattress being very uncomfortable requesting specialty mattress, requests stronger sleep aid at bedtime Physical Exam Vital signs: Vital Signs 03/10/18 16:02 03/10/18 16:15 03/10/18 16:30 Temperature 97.4 F L Pulse Rate 78 75 75 Respiratory Rate 16 12 16 Blood Pressure 106/56 L 109/55 L 115/58 L Pulse Oximetry 98 100 100 03/10/18 16:45 03/10/18 17:00 03/10/18 17:15 Temperature Pulse Rate 70 73 71 Respiratory Rate 15 10 L 17 Blood Pressure 110/54 L 100/55 L 100/53 L Pulse Oximetry 100 98 98 03/10/18 17:30 03/10/18 21:00 03/10/18 22:00 Temperature 97.8 F 97.4 F L Pulse Rate 70 72 Respiratory Rate 14 16 15 Blood Pressure 105/54 L 105/56 L Pulse Oximetry 99 100 03/11/18 00:45 03/11/18 01:00 03/11/18 04:00 Temperature 97.5 F L 97.6 F Pulse Rate 72 75 Respiratory Rate 16 15 16 Blood Pressure 93/53 L 104/54 L Pulse Oximetry 96 95 03/11/18 08:00 Temperature 98.7 F Pulse Rate 84 Respiratory Rate 23 Blood Pressure 113/54 L Pulse Oximetry 95 Intake & Output 03/10/18 03/11/18 03/11/18 18:59 06:59 18:59 Intake Total 770 / 770 Output Total 1730 / 1730 1440 / 1440 Balance -1730 / -1730 -670 / -670 Weight 72.4 kg 72.5 kg Intake: IV 50 / 50 Ancef 2 GM Premix Inj 2 gm In 50 / 50 50 ml @ 100 mls/hr IV.SIG Q8H NEYMAR Rx#:[id number] Oral 720 / 720 Output: Urine 400 / 400 Estimated Blood Loss 1100 / 1100 Urine Amount (Catheter) 200 / 200 1300 / 1300 Indwelling Urethral Catheter 200 / 200 1300 / 1300 Wound Drainage 30 / 30 140 / 140 Lower Posterior Medial Back RACHEL 30 / 30 140 / 140 Drain Other: Date of Last Bowel Movement 03/09/18 03/09/18 # Bowel Movements 0 Weight On Admission 72.4 kg Narrative: Appears comfortable in NAD Moves all major muscle groups of lower extremities well. Awake, alert, speech is fluent. RACHEL drain in place with serosanguineous drainage - Urinary Catheter Management Indwelling Urethral Catheter Cath placed during this visit: yes Reason for continuing: Other continuation reason Insertion date: 03/10/18 Insertion time: 09:00 Assessment and Plan - Plan Impression: s/p L2-3, L3-4, L4-L5 redo lumbar laminectomy, interbody arthrodhesis using PEEK cage and autologous bone graft, L2-3, L3-4, L4-L5 instrumental fixation using transpedicular screws and rods, L2-3, L3-4, L4-L5 posterolateral fusion using autologous bone graft and demineralized bone matrix. Microsurgical dissection 03/10/18 Plan: cont AIR CREW OFFICER for pain control awaiting custom TLSO brace PT, start mobilizing with TLSO dc ortiz catheter Valium qhs per Dr. Cardoza SCDs and TEDs for dvt prophylaxis, protonix for gi prophylaxis specialty [facility]
[2018-03-11] MEDS: Gabapentin 300 MG Capsule PO SCH ×2 (14:04→17:37)
--- NOTE | 2018-03-11 14:28 | P.PNWCN ---
Wound Care Nurse Consult Description: Wound consult ordered by for specialty bed. Communicated with: [employer] Additional information: Patient was seen today by sports writer for evaluation for specialty bed.Patient currently on [place] new gel surface but states mattress is to soft and he's sinking in mattress.Resident In Diagnostic Radiology [facility] Ophel[facility] be delivered. Wound Drain - Drain Lower Posterior Medial Back RACHEL Drain Drainage Description: Serosanguinous Drainage Odor: None/Absent Incision - Incision Lower Back Incision Assessment: Ongoing Incision Type: Incision Incision Dressing Status: Dry & Intact Cover Dressing: Other
[2018-03-12] MEDS: diazePAM 5 MG Tablet PO PRN ×2 (00:04→23:21)
[2018-03-12] MEDS: Sod Chloride 0.9% Inj 1,000 ML IV.SIG SCH ×3 (00:05→21:23)
[2018-03-12] MEDS: Sod Chloride 0.9% Inj 1,000 ML IV.CONT SCH ×2 (03:46→21:23)
[2018-03-12] MEDS: Levothyroxine 88 MCG Tablet PO SCH (05:47)
[2018-03-12 09:00] VITALS: RESP 18
[2018-03-12] MEDS: HYDROmorphone PCA Inj 6 MG/30 ML PCA.VIAL PCA PRN (09:38)
[2018-03-12] MEDS: Senna/Docusate Sodium 8.6/50 MG Tablet PO SCH ×2 (09:45→21:23)
[2018-03-12] MEDS: Gabapentin 300 MG Capsule PO SCH ×3 (09:45→21:23)
[2018-03-12] MEDS: Acyclovir 200 MG Capsule PO SCH ×2 (09:45→21:22)
[2018-03-12] MEDS ORDERED: Morphine Sulfate Inj 2 MG/ML Vial IV.PUSH PRN (12:00)
[2018-03-12] MEDS: oxyCODONE/Acetaminophen 10/325 Tablet PO PRN ×2 (12:25→23:21)
--- NOTE | 2018-03-12 15:39 | P.PNNS ---
Subjective Interval history: 03/12: ambulating with PT. nauseas. <Geri Hopkins - Last Filed: 03/12/18 15:34> Physical Exam Vital signs: Vital Signs 03/11/18 16:00 03/11/18 18:26 03/11/18 20:00 Temperature 101.7 F H 98.7 F 101.5 F H Pulse Rate 88 94 H Respiratory Rate 22 22 Blood Pressure 114/55 L 116/58 L Pulse Oximetry 94 L 97 03/11/18 20:46 03/12/18 00:00 03/12/18 04:00 Temperature 99.9 F H 99.1 F 100.1 F H Pulse Rate 99 H 95 H Respiratory Rate 17 17 Blood Pressure 124/68 125/69 Pulse Oximetry 94 L 93 L 03/12/18 08:00 03/12/18 12:00 Temperature 98.8 F 99.6 F Pulse Rate 104 H 77 Respiratory Rate 18 18 Blood Pressure 121/65 134/64 Pulse Oximetry 91 L 97 Intake & Output 03/11/18 03/12/18 03/12/18 18:59 06:59 18:59 Intake Total 1000 / 1000 Output Total 30 575 / 575 Balance -30 / -30 425 / 425 Weight 72.4 kg Intake: IV 1000 / 1000 NS Inj 1,000 ML @ 100 mls/hr IV 1000 / 1000 .SIG .Q10H NEYMAR Rx#:[id number] Output: Urine 500 / 500 Wound Drainage 75 / 75 Lower Posterior Medial Back RACHEL 30 / 75 / 75 Drain Other: Date of Last Bowel Movement 03/09/18 03/09/18 Narrative: Ambulating with RW and PT. Awake, alert, speech is fluent. RACHEL drain in place with serosanguineous drainage slight pallor to skin. - Urinary Catheter Management Indwelling Urethral Catheter Cath placed during this visit: yes, but has since been removed by the nurse Reason for continuing: Other continuation reason Insertion date: 03/10/18 Insertion time: 09:00 Removal date: 03/11/18 Removal time: 17:44 <Geri Hopkins - Last Filed: 03/12/18 15:34> Vital signs: Intake & Output 03/13/18 03/14/18 03/14/18 18:59 06:59 18:59 Output Total 500 / 500 Balance -500 / -500 Output: Urine 500 / 500 Other: # Voids 3 - Urinary Catheter Management Indwelling Urethral Catheter Cath placed during this visit: no <Mark Cardoza - Last Filed: 03/14/18 16:29> Assessment and Plan - Plan Impression: s/p L2-3, L3-4, L4-L5 redo lumbar laminectomy, interbody arthrodhesis using PEEK cage and autologous bone graft, L2-3, L3-4, L4-L5 instrumental fixation using transpedicular screws and rods, L2-3, L3-4, L4-L5 posterolateral fusion using autologous bone graft and demineralized bone matrix. Microsurgical dissection 03/10/18 Plan: dc ORCHESTRA DIRECTOR, start percocet prn, IV morphine for breakthrough PT, mobilizing with TLSO Valium qhs per Dr. Cardoza SCDs and TEDs for dvt prophylaxis, protonix for gi prophylaxis cont RACHEL drain today, dc tomorrow <Geri Hopkins - Last Filed: 03/12/18 15:34> - Plan The exam, history, and the medical decision-making described in the above note were completed with the assistance of the mid-level provider. I reviewed and agree with the findings presented. I attest that I had a [id number] encounter with the patient on the same day, and personally performed and documented my assessment and findings in the medical record. <Mark Cardoza - Last Filed: 03/14/18 16:29>
[2018-03-13] MEDS: Sod Chloride 0.9% Inj 1,000 ML IV.SIG SCH ×4 (02:53→18:37)
[2018-03-13] MEDS: Sod Chloride 0.9% Inj 1,000 ML IV.CONT SCH ×2 (02:54→10:51)
[2018-03-13] MEDS: oxyCODONE/Acetaminophen 10/325 Tablet PO PRN ×2 (04:37→17:04)
[2018-03-13] MEDS: Levothyroxine 88 MCG Tablet PO SCH (05:00)
[2018-03-13] MEDS: Acyclovir 200 MG Capsule PO SCH (10:49)
[2018-03-13] MEDS: Senna/Docusate Sodium 8.6/50 MG Tablet PO SCH (10:50)
[2018-03-13] MEDS: Gabapentin 300 MG Capsule PO SCH ×3 (10:50→17:04)
--- NOTE | 2018-03-13 13:19 | P.PNNS ---
Subjective Interval history: 03/13: Feeling better today, low-grade fever from yesterday has resolved. Still reports of residual numbness over the right anterior lateral thigh. Denies weakness in legs. Feels radicular pain is improved. Physical Exam Vital signs: Vital Signs 03/12/18 16:00 03/12/18 17:38 03/12/18 19:20 Temperature 98.3 F 99.2 F Pulse Rate 84 105 H Respiratory Rate 18 18 18 Blood Pressure 100/56 L 123/63 Pulse Oximetry 94 L 96 03/13/18 08:00 Temperature 97.2 F L Pulse Rate 90 Respiratory Rate 18 Blood Pressure 112/61 Pulse Oximetry 96 Intake & Output 03/12/18 03/13/18 03/13/18 18:59 06:59 18:59 Intake Total 620 / 620 480 / 480 Output Total 900 / 900 505 / 505 500 / 500 Balance -280 / -280 -25 / -25 -500 / -500 Weight 72.4 kg Intake: Oral 620 / 620 480 / 480 Output: Urine 900 / 900 475 / 475 500 / 500 Wound Drainage 30 / 30 Lower Posterior Medial Back RACHEL 30 / 30 Drain Other: # Voids 650 1 Date of Last Bowel Movement 03/10/18 # Bowel Movements 0 0 Narrative: Awake, alert, speech is fluent. Wound with up the foam dressing in place, no drainage, no saturation. RACHEL drain with very minimal drainage. Moving all major muscle groups of lower extremities 5 out of 5 Reports of sensory loss over the right anterior lateral thigh Plantars flexors bilaterally - Urinary Catheter Management Indwelling Urethral Catheter Cath placed during this visit: yes, but has since been removed by the nurse Reason for continuing: Other continuation reason Insertion date: 03/10/18 Insertion time: 09:00 Removal date: 03/11/18 Removal time: 17:44 Assessment and Plan - Plan Impression: s/p L2-3, L3-4, L4-L5 redo lumbar laminectomy, interbody arthrodhesis using PEEK cage and autologous bone graft, L2-3, L3-4, L4-L5 instrumental fixation using transpedicular screws and rods, L2-3, L3-4, L4-L5 posterolateral fusion using autologous bone graft and demineralized bone matrix. Microsurgical dissection 03/10/18 Plan: cont percocet prn, IV morphine for breakthrough PT, mobilizing with TLSO Valium qhs per Dr. Cardoza SCDs and TEDs for dvt prophylaxis, protonix for gi prophylaxis DC RACHEL drain today Discharge home tomorrow
--- NOTE | 2018-03-13 13:32 | P.DS ---
Date of admission: 03/10/18 06:44 Primary care physician: Aristeo Raza DO Anticipated date of discharge: 03/14/18 Brief History from admission: Mr Hutchinson is a 67 year-old male with history of prior lamiunectomies and discectomies at L3-4 and L4-5, who presented with intractable mechanical back pain and ute evidence of L3, L4 and L5 lower extremity radiculopathy. He has failed maximum nonsurgical management including multiple modalities of conservative treatment as well as pain management interventions by an interventional pain specialist. A surgical decompression and arthrodhesis were indicated as a last resort. Initially my plan was to address L3-4 and L4-5, however Mr Lincoln has developed severe pain higher on his spine and a symptomatic L3 radiculopathy. he requested to include L2-3. DS: Medications - Discharge Medications Prescriptions: diazepam [Valium] 5 mg PO BID PRN #6 tab PRN Reason: Insomnia DS: Summary Hospital Course: Mr. Lincoln underwent L2-3, L3-4, L4-L5 redo lumbar laminectomy, interbody arthrodhesis using PEEK cage and autologous bone graft, L2-3, L3-4, L4-L5 instrumental fixation using transpedicular screws and rods, L2-3, L3-4, L4-L5 posterolateral fusion using autologous bone graft and demineralized bone matrix , microsurgical dissection. - Time Spent with Patient Total time spent providing and/or coordinating discharge services: - Quality: VTE Deep Vein Thrombosis/Pulmonary Embolism Present on Admission: No Exam Vital signs: Vital Signs 03/12/18 16:00 03/12/18 17:38 03/12/18 19:20 Temperature 98.3 F 99.2 F Pulse Rate 84 105 H Respiratory Rate 18 18 18 Blood Pressure 100/56 L 123/63 Pulse Oximetry 94 L 96 03/13/18 08:00 Temperature 97.2 F L Pulse Rate 90 Respiratory Rate 18 Blood Pressure 112/61 Pulse Oximetry 96 Intake & Output 03/12/18 03/13/18 03/13/18 18:59 06:59 18:59 Intake Total 620 / 620 480 / 480 Output Total 900 / 900 505 / 505 500 / 500 Balance -280 / -280 -25 / -25 -500 / -500 Weight 72.4 kg Intake: Oral 620 / 620 480 / 480 Output: Urine 900 / 900 475 / 475 500 / 500 Wound Drainage Lower Posterior Medial Back RACHEL Drain Other: # Voids 650 1 Date of Last Bowel Movement 03/10/18 # Bowel Movements 0 0 Results Procedures completed during hospitalization: L2-3, L3-4, L4-L5 redo lumbar laminectomy, interbody arthrodhesis using PEEK cage and autologous bone graft, L2-3, L3-4, L4-L5 instrumental fixation using transpedicular screws and rods, L2-3, L3-4, L4-L5 posterolateral fusion using autologous bone graft and demineralized bone matrix. Microsurgical dissection - Impressions ITS Impressions Lumbar Spine X-Ray 03/10/18 00:00 CONCLUSION: Intact postsurgical changes. Discharge Plan - Discharge Disposition Patient Disposition: 01 Discharge Home - Discharge Condition Condition: Stable - Physicians Team Primary Care Provider: Aristeo Raza Attending Provider: Mark Cardoza - Rxs /Orders / Referrals /Forms Prescriptions: New diazepam [Valium] 5 mg Tablet 5 mg PO BID PRN (Reason: Insomnia) Qty: 6 RF: 0 Continue acyclovir 400 mg Tablet 400 mg PO BID ciprofloxacin HCl 500 mg Tablet 500 mg PO Q12H levothyroxine 88 mcg Capsule 88 mcg PO DAILY Referrals: Aristeo Raza, DO [Primary Care Provider] - See Instructions - Discharge Instructions Additional Instructions: Take medications as directed. Keep or make your follow up appointments as directed by your providers. Continue to wear lumbar brace as directed by your provider. - Post Discharge Care Plan Care Plan Goals: Your Health Problems: Goals to Promote Your Health: * To prevent worsening of your condition * To maintain your health at the optimal level Directions to Meet Your Goals: * Take your medications as prescribed * Follow your dietary instruction * Follow activity as directed * Keep your appointments as scheduled * Take your immunizations and boosters as scheduled * If your symptoms worsen call your PCP * If no PCP go to Urgent Care or Emergency Room Smoking is dangerous to your health. Avoid second hand smoke. You may reach the 24-hour crisis hotline for domestic abuse at .
[2018-03-13 14:10] VITALS: O2SAT 97
[2018-03-13 18:06] VITALS: BP 100/57; PULSE 97; TEMP 98.1
== END 2018-03-13 19:30 | disposition home or self-care (01) ==
LOC: HSDI 06:44 → N06 18:01
PROVIDERS: ADMIT Neurological Surgery; ATTEND Neurological Surgery
DX: M51.36 Other intervertebral disc degeneration, lumbar region; M54.16 Radiculopathy, lumbar region; Z98.890 Other specified postprocedural states; E03.9 Hypothyroidism, unspecified